=== PATIENT | female | born 1985 | race Caucasian/White ===

== ENCOUNTER → 2016-10-17 | Outpatient (CLI) | payer OTHER ==
[~2016-10-17] MED LIST: COLACE100 MG PO; FERROUS SULFAT325 M1 PO; KEFLEX500 MG PO; MOTRIN800 MG PO; NORCO 325-5 MG1 TAB PO; PRENATAL PLUS I1 TAB PO
== END | disposition short-term general hospital (02) ==
LOC: CLORTH 10:32
DX: S69.92XA Unspecified injury of left wrist, hand and finger(s), initial encounter (principal); M65.9 Synovitis and tenosynovitis, unspecified

== ENCOUNTER → 2016-11-28 | Outpatient (CLI) | payer OTHER | END | disposition short-term general hospital (02) | LOC: CLORTH 11-14 07:47 | DX: M65.9 Synovitis and tenosynovitis, unspecified (principal) ==